=== PATIENT | female | born 1955 | race Caucasian/White ===

== ENCOUNTER 2018-12-09 17:15 | Inpatient (IN) | payer MEDICARE ==
[~2018-12-09] VITALS: Ht 162.6 cm; Wt 49.4 kg
[2018-12-09] MEDS ORDERED: HYSINGLA ER20 MG PO (17:38)
[2018-12-09] MEDS ORDERED: LYRICA50 MG (17:39)
[2018-12-09] MEDS ORDERED: HYDROCODON-ACE1 EA10 (17:39)
--- NOTE | 2018-12-09 19:30 | NUR ---
ASSUMED CARE OF PATIENT, RESTING ON STRETCHER AT THIS TIME FAMILY AT BEDSIDE. LEFT ARM ELEVATED ON PILLOW WITH ICE PACK IN PLACE, PULSES PRESENT.
[2018-12-09 19:56] LABS: BASOPHILS 0.3 % (0-2); EOSINOPHILS 0.6 % (0-7); HEMATOCRIT 40.5 % (36.0-48.0); HEMOGLOBIN 13.4 g/dL (12-16); IMMATURE GRANULOCYTES 0.3 % (0-5); LYMPHOCYTES 11.4 % (15-50); MCH 30.5 pg (26.0-34.0); MCHC 33.1 g/dL (31.0-37.0); MCV 92.3 fL (80.0-100.0); MEAN PLATELET VOLUME 10.8 fL (7.4-10.4); MONOCYTES 7.8 % (2-11); NEUTROPHILS 79.6 % (40-80); PLATELET COUNT 211 10x3/uL (130-400); RBC 4.39 10x6/uL (4.00-5.40); RDW 14.4 % (11.5-14.5); WBC 11.7 10x3/uL (4.8-10.8)
[2018-12-09 20:07] LABS: INR 0.97 (0.85-1.17); PROTIME 12.4 SECONDS (11.6-15.0)
--- NOTE | 2018-12-09 20:10 | NUR ---
PROVIDER TO BEDSIDE PLACING SPLINT ON THE LEFT FOREARM /WRIST, PT TOLERATED WELL.
[2018-12-09 20:15] LABS: ALBUMIN 3.7 g/dL (3.4-5.0); ANION GAP 8.7 mmol/L (8-16); BILIRUBIN - TOTAL 0.19 mg/dL (0.2-1.3); CALCIUM 8.9 mg/dL (8.5-10.1); CARBON DIOXIDE 30.7 mmol/L (21.0-32.0); CREATININE - SERUM 1.1 mg/dL (0.6-1.3); POTASSIUM - SERUM 4.4 mmol/L (3.5-5.1); PROTEIN - SERUM 7.2 g/dL (6.4-8.2)
--- NOTE | 2018-12-09 22:50 | NUR ---
PT CONSENTED FOR AM SURGERY. NPO STATUS BEGINNING AT MIDNIGHT.
[2018-12-09] MEDS ORDERED: CYCLOBENZAPRINE10 MG PO (22:52)
[2018-12-09] MEDS ORDERED: ALBUTEROL0.63 MG/3 INH (22:53)
[2018-12-09] MEDS ORDERED: COMBIVENT RESPIM4 GM INH (22:54)
[2018-12-09 23:30] VITALS: BP 144/72; BMI 18.7
--- NOTE | 2018-12-09 23:37 | NUR ---
ADMISSION ASSESSMENT AND HISTORY COMPLETE.
[2018-12-10] VITALS: BP 144/72
--- NOTE | 2018-12-10 03:15 | NUR ---
GAVE DILAUDID 1 MG IVP AND ZOFRAN 4 MG IVP FOR C/O PAIN AND NAUSEA. WILL MONITOR FOR EFFECTIVENESS.
[2018-12-10 04:00] VITALS: BP 122/65
[2018-12-10 07:18] LABS: BASOPHILS 0.3 % (0-2); EOSINOPHILS 0.8 % (0-7); IMMATURE GRANULOCYTES 0.1 % (0-5); LYMPHOCYTES 16.6 % (15-50); MCH 30.3 pg (26.0-34.0); MCHC 32.4 g/dL (31.0-37.0); MCV 93.4 fL (80.0-100.0); MEAN PLATELET VOLUME 10.9 fL (7.4-10.4); MONOCYTES 9.4 % (2-11); NEUTROPHILS 72.8 % (40-80); PLATELET COUNT 195 10x3/uL (130-400); RBC 3.96 10x6/uL (4.00-5.40); RDW 14.7 % (11.5-14.5)
[2018-12-10 07:19] LABS: WBC 7.6 10x3/uL (4.8-10.8)
--- NOTE | 2018-12-10 08:00 | NUR ---
PATIENT IN BED WITH IV INTACT. NO COMPLAINT OR SIGNS OF DISTRESS. FAMILY AT BEDSIDE. CALL LIGHT WITHIN REACH.
[2018-12-10 08:11] LABS: ANION GAP 11.6 mmol/L (8-16); CARBON DIOXIDE 27.8 mmol/L (21.0-32.0); POTASSIUM - SERUM 4.4 mmol/L (3.5-5.1)
[2018-12-10 08:29] LABS: INR 0.98 (0.85-1.17); PROTIME 12.5 SECONDS (11.6-15.0)
[2018-12-10 09:04] VITALS: BP 115/67
[2018-12-10 10:13] VITALS: Ht 162.6 cm; Wt 49.4 kg
--- NOTE | 2018-12-10 10:30 | NUR ---
ASSISTED PATIENT TO BR AND BACK. PATIENT TO OR.
[2018-12-10] MEDS ORDERED: OXYCODONE HCL10 MG PO (11:47)
[2018-12-10] MEDS ORDERED: DURICEF500 MG PO (11:47)
[2018-12-10 12:15] VITALS: BP 106/51
--- NOTE | 2018-12-10 12:15 | NUR ---
PATIENT BACK FROM SURGERY. VS STABLE. IV INTACT. PATIENT RESTING WITH NO COMPLAINTS AT THIS TIME. BSCDS ON AND WORKING. O2 ON AT 2 L. 100 %. ARM RESTING ON PILLOW WITH SLING IN PLACE. FAMILY AT BEDSIDE. CALL LIGHT WITHIN REACH.
--- NOTE | 2018-12-10 17:05 | NUR ---
PATIENT DOES NOT WANT TO GO HOME AT THIS TIME. NAUSEATED AND AFRAID OF THROWING UP ALL NIGHT. ZOFRAN AND ANCEF GIVEN. NOTIFIED DR. BENZ. SAID OK TO HOLD DC UNTIL AM.
--- NOTE | 2018-12-10 17:11 | OP ---
PATIENT NAME: VICKI CHAVARRIA MEDICAL RECORD: [id number] :51 LOCATION:[id number] ADMISSION DATE:12/09/18 SURGEON: SHUN BENZ DO DATE OF OPERATION: 12/10/2018 PROCEDURE PERFORMED: Left distal radius open reduction internal fixation. PREOPERATIVE DIAGNOSIS: Closed displaced left distal radius fracture, extra-articular. POSTOPERATIVE DIAGNOSIS: Closed displaced left distal radius fracture, extra-articular. INDICATIONS: Ms. Chavarria is a 63-year-old female, who fell onto a barrel yesterday, hit her left wrist and fractured her distal radius. She was seen in primary care's office. X-rays were taken, and she was sent to the ER. I saw her last night. She was neurovascularly intact, but the radius was displaced and told that she would need surgery on it due to the displacement. She was okay with that. Admitted her overnight for surgery today. She was aware of the risks and benefits including damage to nerves and vessels, infection, bleeding, need for further surgery, and fracture. She has very frail skin as well. She is aware that due to her chronic steroid use. She is on chronic pain medicine as well. I informed her that her pain would be very difficult to control due to that fact. She is aware of that and signed the consent. SURGEON: Shun Benz DO DESCRIPTION OF PROCEDURE: The patient was taken to the operative suite. After given a block by anesthesia in the preoperative area, placed in supine position. Left upper extremity was prepped and draped in sterile fashion. Reduction maneuver was made. Once reduction maneuver was made, there was a skin tear on the dorsal side of the wrist that we would address after the surgery. Once reduction was made and a time-out had been performed prior to all of this, everyone was in agreement with the correct side, site, procedure, and patient, then the reduction was made and the left upper extremity was exsanguinated with an Esmarch and tourniquet was inflated to 250 mmHg, it was up for 26 minutes. Incision was then marked out over the flexor carpi radialis tendon and incised with a 15 blade scalpel. Careful dissection was made down to the tendon. The tendon was taken ulnarly and then the tendon sheath on the dorsal side was opened. Then careful dissection was made down to the distal radius itself. The pronator quadratus was removed off the radius and the fracture was noted. Fracture was then reduced. A plate was put into place. Once it was in good position, it was pinned both distally and proximally in the shaft and then distally, locking screws were placed and then 2 screws were placed in the shaft, one of them being locking. The pins had been removed as well. Once the pins were removed and the guide had been removed, confirmed to have good reduction and good fixation on x-ray, both AP and lateral. Tourniquet was let down at 26 minutes. Any bleeding was coagulated at that time. The skin was then closed with 3-0 Vicryl in inverted interrupted fashion and Prineo was placed on the incision site. The dorsal skin tear was then dressed with Cavilon. Cavilon was put on the skin and then a Tegaderm was placed over the skin tear holding it together. The wrist was then dressed with Adaptic, 4 x 4, cast padding and then a 3 x 12 volar splint was placed and wrapped with an Myles wrap secured into place. The patient was then awakened and taken to recovery in stable condition. Blood loss was minimal. Complication was the skin tear. OPERATIVE REPORT [id number] VICKI CHAVARRIA TRANSINT:[id number] Voice Confirmation ID: [id number] DOCUMENT ID: [id number] SHUN BENZ DO at 1711 CC: MILENA CADE [id number] DICTATION DATE: 12/10/18 1155 HEALTH PROGRAM SPECIALIST: 12/10/18 1323 ADM IN [place] [id number] [place] [id number]
[2018-12-10 17:51] VITALS: BP 140/68
--- NOTE | 2018-12-10 19:00 | NUR ---
REPORT RECEIVED AND CARE OF PT ASSUMED. PT LYING IN HIGH PASCAL'S POSITION WITH LEFT ARM IN A SLING. IV IN RIGHT AC PATENT WITH 1/2 NS INFUSING AT 50 ML/HR. WILL MONITOR FOR NEEDS.
[2018-12-10 20:32] VITALS: BP 147/88
--- NOTE | 2018-12-10 21:03 | NUR ---
HS MEDICATIONS GIVEN TO INCLUDE DILAUDID 1 MG IVP, ZOFRAN 4 MG IVP AND BENADRYL 25 MG IVP FOR PAIN AND NAUSEA. WILL MONITOR FOR EFFECTIVENESS.
--- NOTE | 2018-12-11 03:05 | NUR ---
IV IN RIGHT AC LEAKING. REMOVED WITH CATHETER TIP INTACT. RE-SITED BY REYNALDO REES LPN TO RIGHT FA USING 22 GUAGE CATHETER IN ONE STICK. IV FLUIDS RE-STARTED.
--- NOTE | 2018-12-11 06:05 | NUR ---
GAVE DILAUDID 1 MG IVP PER PT REQUEST FOR PAIN. WILL MONITOR FOR EFFECTIVENESS.
[2018-12-11] MEDS ORDERED: HYDROCODON-ACE1 EA10 PO (08:24)
[2018-12-11] MEDS ORDERED: ZOFRAN ODT4 MG/UDTAB PO (08:24)
--- NOTE | 2018-12-11 09:20 | NUR ---
PATIENT RECIEVED DISCHARGE INSTRUCTIONS. VERBALIZED UNDERSTANDING. NO QUESTIONS AT THIS TIME. PRESCRIPTIONS GIVEN TO PATIENT. IV REMOVED WITH CATH TIP INTACT. AWAITING TRANSPORTATION FOR DC. CALL LIGHT WITHIN REACH.
[2018-12-11 10:12] VITALS: BP 130/64
== END 2018-12-11 09:40 | disposition home or self-care (01) | DRG 511 ==
LOC: D.ER 17:15 → D.EDHOLD 19:22 → D.MS 20:28
PROVIDERS: Family Medicine; ADMIT Orthopaedic Surgery; ATTEND Orthopaedic Surgery
PROC: 0PSJ04Z Reposition Left Radius with Internal Fixation Device, Open Approach (ICD-10-PCS; principal; 2018-12-10 10:30)
DX: S52.502A Unspecified fracture of the lower end of left radius, initial encounter for closed fracture (principal); E46 Unspecified protein-calorie malnutrition; Z68.1 Body mass index [BMI] 19.9 or less, adult; K21.9 Gastro-esophageal reflux disease without esophagitis; J44.9 Chronic obstructive pulmonary disease, unspecified